=== PATIENT | female | born 1950 | race Caucasian/White ===

== ENCOUNTER 2018-09-11 06:17 | Day surgery (SDC) | payer OTHER ==
[~2018-09-11 06:17] MED LIST: SIMVASTATIN40 MG PO; TIROSINT25 MCG PO; TOPROL XL25 M1 PO
== END 2018-09-11 11:00 | disposition home or self-care (01) ==
LOC: CIR.AMB 06:17
DX: M19.041 Primary osteoarthritis, right hand (principal)